=== PATIENT | male | born 1980 | race Caucasian/White ===

== ENCOUNTER 2023-12-15 16:39 | Emergency (ER) | payer MEDICAID ==
[~2023-12-15] VITALS: Ht 188 cm; Wt 78.3 kg
[~2023-12-15 16:39] MED LIST: CLIN300C53 PO
[2023-12-15] MEDS ORDERED: SULF1TAB49 PO (17:19)
[2023-12-15] MEDS ORDERED: HYDR-3965 PO (17:19)
[2023-12-15] MEDS: ketorolac trometh 30MG/ML vial 30 MG/ML VIAL IM ONE (17:28)
[2023-12-15 17:32] VITALS: BP 122/66; PULSE 70; RESP 18; TEMP 98.8; O2SAT 99
== END 2023-12-15 17:34 | disposition home or self-care (01) ==
LOC: ER 16:39
DX: L02.412 Cutaneous abscess of left axilla (principal); J45.909 Unspecified asthma, uncomplicated; F17.200 Nicotine dependence, unspecified, uncomplicated; F15.90 Other stimulant use, unspecified, uncomplicated; Z59.00 Homelessness unspecified; Z88.0 Allergy status to penicillin; Z79.1 Long term (current) use of non-steroidal anti-inflammatories (NSAID)
CPT/HCPCS: 96372; 99283; J1885

== ENCOUNTER 2024-11-14 04:04 | Emergency (ER) | payer MEDICAID ==
[~2024-11-14] VITALS: Ht 188 cm; Wt 77.2 kg
[2024-11-14 04:13] VITALS: BP 114/83; PULSE 60; RESP 20; TEMP 97.3; O2SAT 100
--- NOTE | 2024-11-14 05:01 | Physician Documentation ---
History of Present Illness ~ Chief Complaint: Shoulder pain Stated Complaint: SHOULDER PAIN Time Seen by MD: 04:55 Primary Medical Doctor: no md Source: patient Mode of Arrival: POV Exam Limitations: no limitations HPI Chief Complaint: Left upper chest and shoulder pain Caveat: None Independent Historians: None History of Present Illness: Patient is a healthy 44-year-old man who comes in complaining of very superior left chest pain and pain in the shoulder when he takes a deep breath. This began yesterday and the patient thought he had pulled something in his shoulder. However the patient is able to move his arm and shoulder without any pain. Pain only occurs with a deep breath. No cough. No fever. No substernal chest pain. Patient denies shortness or breath. No history of trauma. Review of systems: All systems were reviewed and are negative except for what is indicated in the history of present illness. Past Medical History: History of spontaneous pneumothorax, left Past Surgical History: None Social History: Vapes, no tobacco use, no alcohol use, no other drug use Medications: Reviewed as documented Nursing Notes Allergies: Reviewed as documented in Nursing Notes Tetanus within 5 years?: No Medication Reconciliation Allergies: Coded Allergies: Penicillins (Verified Allergy, Intermediate, RASH, THROAT CLOSES, 12/15/23) Uncoded Allergies: ALL CILLINS (Allergy, Severe, SWELOLING WITH WELTS, 10/21/14) Scheduled Clindamycin HCl (Clindamycin HCl), 1 CAP PO TID Past Medical History Past Medical History: Asthma Other Past Surgical History: Surgery for collapsed lungs (chest tube) Drug Use: methamphetamine Lives In: Homeless Occupation: employed Review of Systems All Other Systems at this time: Reviewed and Negative ROS Patient denies any other acute symptoms other than above. All other systems are negative Physical Exam Vital Signs: RN Vital Signs have been reviewed: Yes, Temperature: 97.3, Source: Temporal, Heart Rate: 60, Respiratory Rate: 20, BP: 114/83, Pulse Oximetry: 100, Weight: 77.250 Oxygen Flow Rate: 0 Pulse Oximetry Reflects: adequate oxygenation Physical Exam General Appearance: No distress HEENT: Normal OP, moist oral mucosa, PERRL, EOMI Neck: supple, normal ROM, trachea midline Pulmonary: No respiratory distress, CTA, BS equal Cardiac: RRR, no murmur, rub or gallop, GI: nondistended, soft, nontender, normal bowel sounds, no guarding, no rebound Extremities: normal ROM, no swelling, non-tender, left shoulder and left lateral chest wall and anterior left chest wall as nontender. Normal range of motion of the shoulder. Left Shoulder is nontender. HOWEVER THE PATIENT IS TENDER OVER THE LEFT SUPRACLAVICULAR AREA IN THE BASE OF THE LEFT LATERAL NECK. PAIN IS REPRODUCIBLE WITH THE EXTREME ADDUCTION OF THE LEFT UPPER EXTREMITY ACROSS THE CHEST. Skin: intact, dry, warm, no rashes Neuro: AAOx3, speech is clear, no focal motor weakness Psych: normal affect, good eye contact, no apparent hallucination, normal speech Progress Results/Orders Results/Orders Orders - MARLON THOMPSON MD Chest,Single View (11/14/24 04:55) Completed Orders - MARLON THOMPSON MD Chest,Single View (11/14/24 04:55) Ketorolac Trometh 15mg/Ml Vial (Toradol (11/14/24 05:05) Vital Signs 11/14/24 04:13 Temp 97.3 Pulse 60 Resp 20 B/P (MAP) 114/83 Pulse Ox 100 O2 Flow Rate 0 Medical Decision Making Findings Differential diagnosis includes but is not limited to: Pulmonary embolus, pleurisy, pneumothorax, musculoskeletal pain, muscle strain Chest x-ray, single view, indication: Left upper chest and shoulder pain Independent interpretation: Lungs are clear, no pneumothorax, normal mediastinum, normal cardiac silhouette. Normal chest x-ray. Emergency department course/medical decision-making: Patient presents with pain in the left lower neck and supraclavicular area on the left. Pain initially did not appear to be related to move in but with the extreme abduction of the left upper extremity he gets pain above the clavicle in the base of the left neck. 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 Patient believes this is the cause for his pain. Do not suspect pulmonary embolus. Presentation isn't consistent with acute coronary syndrome. Back to musculoskeletal pain. There was no evidence of pulmonary embolus. Chest x-ray is clear of pneumothorax. Test results reviewed with the patient. Patient is stable for discharge. Patient is given Toradol 15 mg IM for his pain. Departure Time of Disposition: 05:59 Disposition: 01 HOME / SELF CARE / HOMELESS Impression: Primary Impression: Musculoskeletal pain Condition: Stable Discharge Instructions: Musculoskeletal Pain Additional Instructions: TAKE MOTRIN AND TYLENOL FOR YOUR PAIN. Education Educated: Patient Educated regarding: diagnosis, treatment, need for follow up Signature Scribe Signature: No scribe Attestation: No scribe MARLON THOMPSON MD Nov 14, 2024 05:01
[2024-11-14] MEDS: ketorolac trometh 15mg/ml vial 15 MG/ML ML IM ONE (05:11)
--- NOTE | 2024-11-14 05:31 | RADIOLOGY REPORT ---
EXAM: DI CHEST,SINGLE VIEW HISTORY: CP COMPARISON: None TECHNIQUE: PA upright view of the chest was performed. FINDINGS: No pneumothorax, consolidative infiltrates, or pulmonary edema. The heart is not enlarged. IMPRESSION: No acute intrathoracic process.
== END 2024-11-14 06:12 | disposition home or self-care (01) ==
LOC: ER 04:05
DX: M79.18 Myalgia, other site (principal); M25.512 Pain in left shoulder; R07.89 Other chest pain; J45.909 Unspecified asthma, uncomplicated; F17.290 Nicotine dependence, other tobacco product, uncomplicated; F15.90 Other stimulant use, unspecified, uncomplicated; Z88.0 Allergy status to penicillin
CPT/HCPCS: 71045; 96372; 99283; J1885

== ENCOUNTER 2024-12-26 05:43 | Emergency (ER) | payer MEDICAID ==
--- NOTE | 2024-12-26 06:08 | ELECTROCARDIOGRAPH REPORT ---
[facility] Test Date: 2024-12-26 Test Time: 05:47:58 Pat Name: THIEN JAMES Department: EMERGENCY ROOM Room: Gender: M Tabular Typist: CAROLYN : 1980 Requested By: DEPARTMENT EMERGENCY Order Number: [id number] Reading MD: Measurements Intervals [place] Rate: 60 P: 14 CA: 142 QRS: 48 QRSD: 90 T: 48 QT: 378 QTc: 378 Interpretive Statements Sinus rhythm Please click the below link to view image of tracing.
[2024-12-26 06:22] LABS: MEAN PLATELET VOLUME 9.4 FL (7.4-10.4); RED CELL DISTRIBUTION WIDTH 13.4 % (11.5-14.5)
--- NOTE | 2024-12-26 06:25 | RADIOLOGY REPORT ---
CHEST RADIOGRAPH Indication: CP Technique: Single frontal view of the chest was obtained COMPARISON: DI CHEST,SINGLE VIEW on DOS: 11/14/24 FINDINGS: Lines and Tubes: None Lungs: Clear Pleura: No effusion. No pneumothorax. Cardiomediastinal contours: Unremarkable Bones: Unremarkable IMPRESSION: 1. No acute disease.
[2024-12-26 06:31] VITALS: BP 145/84
[2024-12-26 06:38] LABS: CREATININE 0.82 MG/DL (0.60-1.10); PRO BRAIN NATRIURETIC PEPTIDE < 30 PG/ML (0-125); TOTAL CARBON DIOXIDE 28.8 MMOL/L (24-32); eGFR > 90 ML/MIN
--- NOTE | 2024-12-26 06:45 | Physician Documentation ---
History of Present Illness ~ Chief Complaint: Chest Pain Stated Complaint: CHEST PAIN Time Seen by MD: 06:01 Primary Medical Doctor: sarina crockett Mode of Arrival: POV, Ambulatory HPI 44 year old male reports L sided chest pain radiating to axilla. Also reports incidental constipation and "coughing up blood" but unable to characterize quantity or frequency. 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 He has a history of a L-sided spontanous pneumothorax. Denies fever, N/V/D, cardiac history. Medication Reconciliation Allergies: Coded Allergies: Penicillins (Verified Allergy, Intermediate, RASH, THROAT CLOSES, 12/26/24) Uncoded Allergies: ALL CILLINS (Allergy, Severe, SWELOLING WITH WELTS, 10/21/14) Scheduled Clindamycin HCl (Clindamycin HCl), 1 CAP PO TID Past Medical History Past Medical History: Asthma Other Past Surgical History: Surgery for collapsed lungs (chest tube) Drug Use: methamphetamine Lives In: Homeless Occupation: employed Review of Systems All Other Systems at this time: Reviewed and Negative Physical Exam Vital Signs: RN Vital Signs have been reviewed: Yes, Temperature: 98.9, Heart Rate: 55, Respiratory Rate: 14, BP: 145/84, Pulse Oximetry: 100 Oxygen Flow Rate: 0 Physical Exam HEENT: PERRL, moist oral mucosa, EOMI Pulmonary: No respiratory distress Cardiac: RRR, no murmur, rub or gallop GI: nondistended, soft, nontender, no guarding, no rebound MSK: no deformity Skin: w/d/i, no rash Neuro: alert, nonfocal Psych: normal affect Progress Results/Orders Results/Orders Orders - ABIGAIL COE MD Chest,Single View (12/26/24 06:07) Monitor (12/26/24 06:07) Saline Lock (12/26/24 06:07) Oxygen (12/26/24 06:07) Hs Troponin I W Calculations (12/26/24 08:07) Hs Troponin I W Calculations (12/26/24 09:07) Completed Orders - ABIGAIL COE MD Chest,Single View (12/26/24 06:07) Cbc/Diff (12/26/24 06:07) BMP (12/26/24 06:07) PBNP (12/26/24 06:07) Hs Troponin I W Calculations (12/26/24 06:07) Vital Signs 12/26/24 12/26/24 12/26/24 12/26/24 05:49 05:58 06:05 06:31 Temp 98.9 Pulse 63 66 55 Resp 14 16 16 14 B/P (MAP) 131/75 145/84 (104) 145/84 (104) Pulse Ox 98 100 100 O2 Flow Rate 0 0 Laboratory Tests Test 12/26/24 06:00 White Blood Count 6.8 Red Blood Count 4.76 Hemoglobin 14.5 Hematocrit 43.1 Mean Corpuscular Volume 90.6 Mean Corpuscular Hemoglobin 30.4 Mean Corpuscular Hemoglobin Concent 33.6 Red Cell Distribution Width 13.4 Platelet Count 268 Mean Platelet Volume 9.4 Neutrophils (%) (Auto) 46.6 Lymphocytes (%) (Auto) 40.9 Monocytes (%) (Auto) 8.7 Eosinophils (%) (Auto) 2.5 Basophils (%) (Auto) 1.3 H Neutrophils # (Auto) 3.2 Lymphocytes # (Auto) 2.8 Monocytes # (Auto) 0.6 Eosinophils # (Auto) 0.2 Basophils # (Auto) 0.1 CBC Comment Sodium Level 144 Potassium Level 4.1 Chloride Level 109 H Carbon Dioxide Level 28.8 Anion Gap 6 L Blood Urea Nitrogen 15 Creatinine 0.82 Estimated GFR/1.73 m2 > 90 BUN/Creatinine Ratio 18.3 Glucose Level 87 Calcium Level 9.1 Troponin I High Sensitivity 4 Pro-B-Type Natriuretic Peptide < 30 Albumin 4.0 Chemistry Comments Medical Decision Making Findings 44 year old male with chest pain as above. Vitals and exam unremarkable. EKG by my interpretation demonstrated NSR at rate of 60/minute with no STEMI criteria and no dysrhythmias noted. CXR by my interpretation demonstrated normal contours, no PTX, no pneumonia, no acute. Labs unremarkable, no further "coughing up blood" noted during his stay. We will road test and discharge with return precautions. Differential Dx:Considerations: Include: chest wall pain, myocardial infarction, pericarditis, pneumonia, pneumothorax, pulmonary embolus Departure Disposition: HOME / SELF CARE / HOMELESS Impression: Primary Impression: Chest pain Condition: Stable Discharge Instructions: Nonspecific Chest Pain, Adult Referrals: NO PRIMARY CARE PROVIDER (PCP) Education Educated: Patient Educated regarding: diagnosis, treatment, prognosis, need for follow up Signature Scribe Signature: . Attestation: . ABIGAIL COE MD Dec 26, 2024 06:45
[2024-12-26 06:53] VITALS: PULSE 62; RESP 16; O2SAT 100
[2024-12-26 06:59] VITALS: TEMP 98.9
== END 2024-12-26 07:00 | disposition home or self-care (01) ==
LOC: ER 05:44
DX: R07.89 Other chest pain (principal); R06.02 Shortness of breath; J45.909 Unspecified asthma, uncomplicated; F15.90 Other stimulant use, unspecified, uncomplicated; Z88.0 Allergy status to penicillin
CPT/HCPCS: 36415; 71045; 80048; 83880; 84484; 85025; 93005; 99285

== ENCOUNTER 2025-01-14 14:24 | Emergency (ER) | payer MEDICAID ==
[~2025-01-14] VITALS: Ht 188 cm; Wt 78.4 kg
[2025-01-14 16:07] VITALS: BP 121/87; PULSE 88; RESP 18; O2SAT 99
[2025-01-14] MEDS ORDERED: POLY17PO10 PO (16:44)
--- NOTE | 2025-01-14 16:44 | Physician Documentation ---
History of Present Illness ~ Chief Complaint: Constipation Stated Complaint: CONSTIPATION Time Seen by MD: 15:55 Primary Medical Doctor: NATHALY OCAMPO HPI 44-year-old male presents with a complaint of constipation. States that this morning had a large bowel movement. Denies any opioid use. Denies any abdominal pain. Medication Reconciliation Allergies: Coded Allergies: Penicillins (Verified Allergy, Intermediate, RASH, THROAT CLOSES, 01/14/25) Uncoded Allergies: ALL CILLINS (Allergy, Severe, SWELOLING WITH WELTS, 10/21/14) Scheduled Clindamycin HCl (Clindamycin HCl), 1 CAP PO TID Polyethylene Glycol 3350* (Miralax*), 1 PKT PO DAILY Past Medical History Past Medical History: Asthma Other Past Surgical History: Surgery for collapsed lungs (chest tube) Drug Use: methamphetamine Lives In: Homeless Occupation: employed Review of Systems All Other Systems at this time: Reviewed and Negative ROS As stated above in the HPI, otherwise all systems are reviewed and negative. Physical Exam Vital Signs: Temperature: 98.6, Source: Temporal, Heart Rate: 88, Respiratory Rate: 18, BP: 121/87, Pulse Oximetry: 99, Weight: 78.400 Oxygen Flow Rate: 0 Physical Exam General: Alert, no apparent distress. HEENT: PERRL, EOMI, no injection, moist mucous membranes. Neck: Full range of motion. Respiratory: Lungs clear, no respiratory distress. Chest: No accessory muscle use. Cardiovascular: Regular rate and rhythm, no murmurs. Gastrointestinal: Soft, nontender, nondistended. Bowels sounds present. Extremities: Normal range of motion, no deformity. Neurologic: Oriented x4. Psychiatric: Normal mood and affect. Skin: Normal color, warm and dry. No edema, no ecchymosis. Progress Results/Orders Results/Orders Vital Signs 01/14/25 01/14/25 01/14/25 14:33 16:07 17:11 Temp 98.6 98.6 98.6 Pulse 62 88 Resp 18 18 B/P (MAP) 113/72 121/87 (98) Pulse Ox 100 99 O2 Flow Rate 0 0 Medical Decision Making Findings Treat this patient for nonemergent constipation. Offered MiraLax and patient verbalized appreciation and will follow up in the outpatient setting Departure Disposition: 01 HOME / SELF CARE / HOMELESS Impression: Primary Impression: Constipation Condition: Improved Discharge Instructions: Constipation, Adult Referrals: NO PRIMARY CARE PROVIDER (PCP) Prescriptions Polyethylene Glycol 3350* (Miralax*) 1 Packet Packet 1 PKT PO DAILY for constipation, #30 PKT dissolve in water Prov: CORTEZ JOYA NP 01/14/25 Signature Scribe Signature: t Attestation: Scribed for Cortez Joya [employer]ination by Cortez Alvarenga NP . 01/14/25 23:06 CORTEZ JOYA NP Jan 14, 2025 16:44
[2025-01-14 17:11] VITALS: TEMP 98.6
== END 2025-01-14 17:12 | disposition home or self-care (01) ==
LOC: ER 14:24
DX: K59.00 Constipation, unspecified (principal); J45.909 Unspecified asthma, uncomplicated; F15.90 Other stimulant use, unspecified, uncomplicated; Z88.0 Allergy status to penicillin
CPT/HCPCS: 99282